=== PATIENT | female | born 1950 | race Caucasian/White ===

== ENCOUNTER 2023-07-19 10:11 | Day surgery (SDC) | payer OTHER ==
[2023-07-15 08:51] LABS: BASOPHILS # (AUTO) 0.1 X10'3 (0-0.2); EOSINOPHILS # (AUTO) 0.4 X10'3 (0-0.9); EOSINOPHILS % (AUTO) 5.9 % (0-6); HEMATOCRIT 41.4 % (35.0-45.0); HEMOGLOBIN 13.6 g/dl (12.0-16.0); LYMPHOCYTES # (AUTO) 1.5 X10'3 (1.1-4.8); LYMPHOCYTES % (AUTO) 24.5 % (21-51); MEAN CORPUSCULAR HEMOGLOBIN 29.1 PG (27.0-31.0); MEAN CORPUSCULAR HGB CONC 32.9 g/dL (33.0-36.5); MEAN CORPUSCULAR VOLUME 88.6 FL (78-98); MEAN PLATELET VOLUME 8.4 FL (7.4-10.4); MONOCYTES # (AUTO) 0.4 X10'3 (0-0.9); NEUTROPHILS # (AUTO) 3.8 X10'3 (1.8-7.7); NEUTROPHILS % (AUTO) 61.6 % (42-75); PLATELET COUNT 243 X10'3 (140-440); RED BLOOD COUNT 4.67 X10'6 (4.20-5.60); RED CELL DISTRIBUTION WIDTH 14.5 % (11.5-14.5); WHITE BLOOD COUNT 6.2 X10'3 (4.5-11.0)
[2023-07-15 09:04] LABS: ALBUMIN 3.1 G/DL (3.4-5.0); ANION GAP 12 (8-16); BLOOD UREA NITROGEN 23 MG/DL (7-18); BUN/CREATININE RATIO 19.7 (10.0-20.0); CALCIUM 9.1 MG/DL (8.5-10.1); CHLORIDE 106 MMOL/L (99-107); CHOL/HDL RATIO 1.6 (0.00-4.99); CHOLESTEROL 120 MG/DL (0-200); CREATININE 1.17 MG/DL (0.40-0.90); HDL CHOLESTEROL 73 MG/DL (35-60); LDL CHOLESTEROL 35 MG/DL (50-100); POTASSIUM 4.3 MMOL/L (3.5-5.1); SODIUM 143 MMOL/L (135-145); TOTAL CARBON DIOXIDE 24.6 MMOL/L (24-32); TRIGLYCERIDES 62 MG/DL (20-135); eGFR 45 ML/MIN
[2023-07-15 09:06] LABS: GLUCOSE 97 MG/DL (70-104)
[2023-07-15 09:28] LABS: APTT 28 SECONDS (22-32); PROTHROMBIN TIME 10.3 SECONDS (9.0-12.0)
[2023-07-19] VITALS (9 sets, daily range): BP systolic 97–144; BP diastolic 50–81; PULSE 60–85; RESP 14–16; TEMP 98; O2SAT 94–97
[~2023-07-19] VITALS: Ht 175.3 cm; Wt 83.7 kg
[2023-07-19] MEDS ORDERED: BUDE10.2 INH (10:39)
[2023-07-19] MEDS ORDERED: NIFE-33 PO (10:39)
[2023-07-19] MEDS ORDERED: ROSU10TA28 PO (10:39)
[2023-07-19] MEDS ORDERED: UBID100C45 PO (10:39)
[2023-07-19] MEDS: diphenhydrAMINE 25mg capsule PO PRN (11:10)
[2023-07-19] MEDS: normal saline 1,000 ML IV SCH (11:10)
[2023-07-19] MEDS: LORazepam 0.5 MG tablet PO PRN (11:10)
[2023-07-19] MEDS ORDERED: midazolam 1 mg/ML 2ml injection ONE (12:07)
[2023-07-19] MEDS ORDERED: LIDOcaine 1% (10mg/ml) 2ml vial ONE (12:07)
[2023-07-19] MEDS ORDERED: verapamil 2.5 mg/ml inj IV ONE (12:07)
[2023-07-19] MEDS ORDERED: fentaNYL/PF 50MCG/1 ML 2ML syringe ONE (12:07)
[2023-07-19] MEDS ORDERED: heparin 1,000unit/ml 10ml vial 10 ML ONE (12:08)
[2023-07-19] MEDS ORDERED: iohexol 350 MG/ML 50ML vial IV ONE (12:08)
[2023-07-19] MEDS ORDERED: iohexol 350MG/ML 100ml bottle IV ONE (12:08)
[2023-07-19] MEDS ORDERED: nitroGLYCERIN 500mcg/5mL D5W 5 ML IV ONE (12:09)
[2023-07-19] MEDS ORDERED: HYDROcodone/acetaminophen 5mg/325mg tablet PO PRN (13:35)
[2023-07-19] MEDS ORDERED: nitroGLYCERIN 0.4mg SUBLingual tab SL PRN (13:35)
[2023-07-19] MEDS ORDERED: proCHLORperazine 10 MG/2 ml inj IV PRN (13:35)
[2023-07-19] MEDS ORDERED: ondansetron/PF 4mg/2ml inj IV PRN (13:35)
[2023-07-19] MEDS ORDERED: HYDROcodone/acetaminophen 10/325mg tab PO PRN (13:35)
[2023-07-19] MEDS ORDERED: OXAZEpam 15mg capsule PO PRN (13:35)
== END 2023-07-19 16:10 | disposition home or self-care (01) ==
LOC: SSTAY O 10:11
PROVIDERS: ATTEND Student in an Organized Health Care Education/Training Program
DX: I71.21 Aneurysm of the ascending aorta, without rupture (principal); I10 Essential (primary) hypertension; E78.00 Pure hypercholesterolemia, unspecified; J45.909 Unspecified asthma, uncomplicated; M19.90 Unspecified osteoarthritis, unspecified site; Z79.899 Other long term (current) drug therapy
CPT/HCPCS: 36415; 80048; 80061; 85025; 85610; 85730; 93005; 93458; 93567; 99152; J1644; J2250; J3010; J3490; J7030; Q0163; Q9967; 99153; A6258; A6402; A6449; C1894

== ENCOUNTER 2023-08-22 05:37 | Inpatient (IN) | payer OTHER ==
[2023-08-18 13:53] LABS: BASOPHILS # (AUTO) 0.1 X10'3 (0-0.2); BASOPHILS % (AUTO) 1.3 % (0-1); BILIRUBIN,URINE NEGATIVE (Neg); CLARITY,URINE SLIGHTLY CLOUDY (Clear); COLOR,URINE YELLOW (Yellow); EOSINOPHILS # (AUTO) 0.4 X10'3 (0-0.9); EOSINOPHILS % (AUTO) 5.6 % (0-6); GLUCOSE, URINE NEGATIVE (Neg); KETONES,URINE NEGATIVE (Neg); LEUKOCYTE ESTERASE ,URINE TRACE (Neg); LYMPHOCYTES # (AUTO) 1.9 X10'3 (1.1-4.8); LYMPHOCYTES % (AUTO) 25.3 % (21-51); MEAN CORPUSCULAR HEMOGLOBIN 29.1 PG (27.0-31.0); MEAN CORPUSCULAR HGB CONC 33.4 g/dL (33.0-36.5); MEAN CORPUSCULAR VOLUME 87.1 FL (78-98); MEAN PLATELET VOLUME 8.8 FL (7.4-10.4); MONOCYTES # (AUTO) 0.5 X10'3 (0-0.9); MONOCYTES % (AUTO) 6.1 % (2-12); NEUTROPHILS # (AUTO) 4.7 X10'3 (1.8-7.7); NEUTROPHILS % (AUTO) 61.7 % (42-75); NITRITES, URINE NEGATIVE (Neg); OCCULT BLOOD,URINE NEGATIVE (Neg); PH,URINE 5.5 (4.8-8.0); PRE OP HEMATOCRIT 43.9 % (35.0-45.0); PRE OP HEMOGLOBIN 14.7 g/dL (12.0-16.0); PRE OP PLATELET COUNT 276 X10'3 (140-440); PRE OP WHITE BLOOD COUNT 7.6 10'3 (4.8-10.8); PROTEIN,URINE NEGATIVE (Neg); RED BLOOD COUNT 5.03 X10'6 (4.20-5.60); RED CELL DISTRIBUTION WIDTH 14.3 % (11.5-14.5)
[2023-08-18 13:55] LABS: UA COLLECTION TYPE CLN CATCH MIDSTREAM
[2023-08-18 13:59] LABS: SQUAMOUS EPITHELIAL CELL,UR MODERATE /LPF (FEW)
[2023-08-18 14:00] LABS: BACTERIA,URINE FEW /HPF (Neg); RBC,URINE NONE SEEN /HPF (0-2)
[2023-08-18 14:08] LABS: PRE OP PROTIME 10.8 SECONDS (9.0-12.0)
[2023-08-18 14:09] LABS: ALBUMIN 3.4 G/DL (3.4-5.0); ALBUMIN/GLOBULIN RATIO 0.8 (1.1-1.5); ALKALINE PHOSPHATASE 108 IU/L (46-116); BLOOD UREA NITROGEN 9 MG/DL (7-18); BUN/CREATININE RATIO 6.5 (10.0-20.0); CALCIUM 9.4 MG/DL (8.5-10.1); CHLORIDE 105 MMOL/L (99-107); CREATININE 1.39 MG/DL (0.40-0.90); PRE OP ALT 15 U/L (30-65); PRE OP ANION GAP 11 (8-16); PRE OP AST 19 U/L (10-37); PRE OP BILIRUB, TOTAL 0.6 MG/DL (0.0-1.0); PRE OP GLUCOSE 107 MG/DL (70-104); PRE OP POTASSIUM 4.1 MMOL/L (3.4-5.1); PRE OP SODIUM 140 MMOL/L (135-145); TOTAL CARBON DIOXIDE 24.4 MMOL/L (24-32); TOTAL PROTEIN 7.9 G/DL (6.4-8.2); eGFR 37 ML/MIN
[2023-08-18 14:17] LABS: HEMOGLOBIN A1C 5.2 % (4.5-6.2)
[2023-08-22] VITALS (25 sets, daily range): BP systolic 13–147; BP diastolic 44–85; PULSE 53–81; RESP 12–16; TEMP 97–97.4; O2SAT 97–99
[~2023-08-22] VITALS: Ht 152.4 cm; Wt 84.6 kg
[~2023-08-22 05:37] MED LIST: FLUT1BLS4 INH; Insulin Reg/NS 100units/100mL 100 ML IV SCH; NIFE-33 PO; ROSU10TA28 PO; dextrose 50%-water 50ml dispensing syringe IV PRN
[2023-08-22] MEDS: cefazolin 2gm/D5W 100mL 100 ML IV ONE (05:54)
[2023-08-22] MEDS: mupirocin 2% nasal ointment 1gm UD NS ONE (06:10)
[2023-08-22] MEDS: famotidine 20mg tablet PO ONE (06:10)
[2023-08-22] MEDS: vancomycin 1,500 MG in NS 300ml IV soln IV ONE (06:11)
[2023-08-22] MEDS: ringers solution, lacted 1,000 ML IV SCH (06:11)
[2023-08-22] MEDS ORDERED: ceFAZolin 1000mg inj ONE (06:27)
[2023-08-22] MEDS ORDERED: LIDOcaine 1% (10mg/ml) 2ml vial ONE (06:27)
[2023-08-22] MEDS ORDERED: heparin 10,000 units/1 ML INJ ONE (06:27)
[2023-08-22] MEDS ORDERED: epiNEPHrine 1 mg/ml inj ONE (06:27)
[2023-08-22] MEDS: metoprolol tartrate 12.5mg (1/2 tablet) PO ONE (06:28)
[2023-08-22] MEDS ORDERED: vancomycin 1,000mg inj ONE (06:28)
[2023-08-22 06:48] LABS: ABG BASE EXCESS -1.4 mmol/L (-2.0-2.0); ABG OXYGEN SATURATION 96.3 % (94-97); ABG PCO2 (T) 33.9 mmHg (32.0-45.0); ABG PH (T) 7.431 (7.350-7.450); ABG PO2 (T) 80.1 mmHg (75.0-100.0); ALLEN'S TEST POSITIVE; FCOHb 0.1 % (0.0-3.9); FHHb 3.7 % (0.0-5.0); FMetHb 0.3 % (0.0-1.5); FO2Hb 95.9 % (94-97); MODE ROOM AIR; TOTAL HEMOGLOBIN 15.7 G/dl (12.0-16.0)
[2023-08-22] MEDS: LORazepam 2 mg/ml vial IV PRN (07:37)
[2023-08-22] MEDS ORDERED: propofol inj 20 ML IV ONE (07:48)
[2023-08-22] MEDS ORDERED: MIDAZolam 1 MG/ML 5ML VIAL ONE (07:48)
[2023-08-22] MEDS ORDERED: SUfentanil 50mcg/ml 1ml amp IV ONE (07:48)
[2023-08-22] MEDS ORDERED: rocuronium 10mg/ml inj IV ONE ×2 (07:49)
[2023-08-22] MEDS ORDERED: albumin (human) 25% 100 ML IV solution IV ONE (08:00)
[2023-08-22] MEDS ORDERED: sevoflurane 250ml liquid IH ONE (08:02)
[2023-08-22] MEDS: ceFAZolin 1000mg inj IR ONE (08:30)
[2023-08-22 09:03] LABS: ABG BASE EXCESS -1.4 mmol/L (-2.0-2.0); ABG PCO2 (T) 37.4 mmHg (32.0-45.0); ABG PH (T) 7.406 (7.350-7.450); ABG PO2 (T) 210.6 mmHg (75.0-100.0); FCOHb 0.3 % (0.0-3.9); FMetHb 0.3 % (0.0-1.5); FO2Hb 98.4 % (94-97); TOTAL HEMOGLOBIN 12.2 G/dl (12.0-16.0)
[2023-08-22 09:38] LABS: ACT @ 1.70 U 259 SEC (193-297); ACT @ 2.84 U 336 SEC (260-420); BASELINE ACT 124 SEC (101-148); PATIENT WEIGHT 78.0k KG
[2023-08-22 09:52] LABS: ABG BASE EXCESS 1.6 mmol/L (-2.0-2.0); ABG OXYGEN SATURATION 99.3 % (94-97); ABG PCO2 (T) 34.6 mmHg (32.0-45.0); ABG PH (T) 7.477 (7.350-7.450); ABG PO2 (T) 503.7 mmHg (75.0-100.0); FCOHb 0.3 % (0.0-3.9); FHHb 0.7 % (0.0-5.0); FMetHb 0.3 % (0.0-1.5); FO2Hb 98.7 % (94-97); TOTAL HEMOGLOBIN 9.6 G/dl (12.0-16.0)
[2023-08-22 10:19] LABS: ABG BASE EXCESS 6.8 mmol/L (-2.0-2.0); ABG PCO2 (T) 37.1 mmHg (32.0-45.0); ABG PH (T) 7.526 (7.350-7.450); ABG PO2 (T) 295.4 mmHg (75.0-100.0); FCOHb 0.3 % (0.0-3.9); FMetHb 0.3 % (0.0-1.5); FO2Hb 98.4 % (94-97); TOTAL HEMOGLOBIN 8.7 G/dl (12.0-16.0)
[2023-08-22 10:53] LABS: ACTIVATED CLOTTING TIME 118 SEC (101-148)
[2023-08-22] MEDS ORDERED: dextrose 50%-water 50ml dispensing syringe IV PRN (11:15)
[2023-08-22] MEDS ORDERED: sodium phosphate inj. 30 MMOL in dextrose 5%-water 250 ML IV PRN (11:15)
[2023-08-22] MEDS ORDERED: nitroGLYCERIN-Tridil 50MG/D5W 250 ML IV PRN (11:15)
[2023-08-22] MEDS: Insulin Reg/NS 100units/100mL 100 ML IV SCH (11:15)
[2023-08-22] MEDS ORDERED: potassium Cl 20 mEq SR tablet PO PRN (11:15)
[2023-08-22] MEDS ORDERED: insulin glargine (Lantus) pen - multi-dose SQ PRN (11:15)
[2023-08-22] MEDS ORDERED: Neutra Phos packet PO PRN (11:15)
[2023-08-22] MEDS ORDERED: metoclopramide 5 mg/ml inj IV PRN (11:15)
[2023-08-22] MEDS ORDERED: mineral oil 133ml enema RC PRN (11:15)
[2023-08-22] MEDS ORDERED: niCARDipine-NS 40mg/200ml IVPB 200 ML IV PRN (11:15)
[2023-08-22] MEDS ORDERED: potassium Cl 40MEQ/1/2NS 520ml 520 ML IV PRN (11:15)
[2023-08-22] MEDS ORDERED: magnesium 4gm in 100ml NS 100 ML IV PRN (11:15)
[2023-08-22] MEDS ORDERED: ondansetron/PF 4mg/2ml inj IV PRN (11:15)
[2023-08-22] MEDS: sodium chloride 0.45% 1,000 ML IV SCH (11:15)
[2023-08-22] MEDS ORDERED: potassium CL 10mEq/100ml bag 100 ML IV PRN (11:15)
[2023-08-22] MEDS ORDERED: potassium Cl 40MEQ/270ML bag 250 ML IV PRN (11:15)
[2023-08-22 11:47] LABS: BASOPHILS % (AUTO) 0.3 % (0-1); EOSINOPHILS # (AUTO) 0.2 X10'3 (0-0.9); EOSINOPHILS % (AUTO) 2.9 % (0-6); HEMATOCRIT 32.7 % (35.0-45.0); LYMPHOCYTES # (AUTO) 0.9 X10'3 (1.1-4.8); LYMPHOCYTES % (AUTO) 10.4 % (21-51); MEAN CORPUSCULAR HEMOGLOBIN 29.3 PG (27.0-31.0); MEAN CORPUSCULAR HGB CONC 33.5 g/dL (33.0-36.5); MEAN CORPUSCULAR VOLUME 87.6 FL (78-98); MONOCYTES # (AUTO) 0.2 X10'3 (0-0.9); MONOCYTES % (AUTO) 2.6 % (2-12); NEUTROPHILS # (AUTO) 6.9 X10'3 (1.8-7.7); NEUTROPHILS % (AUTO) 83.8 % (42-75); PLATELET COUNT 119 X10'3 (140-440); RED BLOOD COUNT 3.74 X10'6 (4.20-5.60); RED CELL DISTRIBUTION WIDTH 14.2 % (11.5-14.5); WHITE BLOOD COUNT 8.2 X10'3 (4.5-11.0)
[2023-08-22 11:52] LABS: ABG BASE EXCESS -0.3 mmol/L (-2.0-2.0); ABG HCO3 23.9 mmol/L (22.0-26.0); ABG OXYGEN SATURATION 99.5 % (94-97); ABG PCO2 (T) 36.9 mmHg (32.0-45.0); ABG PH (T) 7.427 (7.350-7.450); ABG PO2 (T) 258.5 mmHg (75.0-100.0); FCOHb 0.1 % (0.0-3.9); FHHb 0.5 % (0.0-5.0); FMetHb 0.3 % (0.0-1.5); FO2Hb 99.1 % (94-97); MODE VENT - SIMV/VC; PATIENT TEMPERATURE 36.9; PEEP 5 cm H2O; RESPIRATORY RATE 12 b/min; TIDAL VOLUME 500 mL; TOTAL HEMOGLOBIN 11.8 G/dl (12.0-16.0)
[2023-08-22] MEDS: albumin (Human) 5% 250ml 250 ML IV PRN (11:52)
[2023-08-22 11:59] LABS: APTT 27 SECONDS (22-32); INR 1.2 INR; PROTHROMBIN TIME 12.8 SECONDS (9.0-12.0)
[2023-08-22 12:03] LABS: ALANINE AMINOTRANSFERASE 8 U/L (12-78); ALBUMIN 2.7 G/DL (3.4-5.0); ALBUMIN/GLOBULIN RATIO 1.2 (1.1-1.5); ALKALINE PHOSPHATASE 53 IU/L (46-116); ANION GAP 12 (8-16); ASPARTATE AMINO TRANSFERASE 20 U/L (10-37); BILIRUBIN,TOTAL 0.4 MG/DL (0.1-1.0); BLOOD UREA NITROGEN 12 MG/DL (7-18); BUN/CREATININE RATIO 11.4 (10.0-20.0); CHLORIDE 110 MMOL/L (99-107); CREATININE 1.05 MG/DL (0.40-0.90); GLUCOSE 124 MG/DL (70-104); MAGNESIUM 2.7 MG/DL (1.5-2.4); PHOSPHORUS 1.8 MG/DL (2.3-4.5); SODIUM 145 MMOL/L (135-145); TOTAL CARBON DIOXIDE 23.4 MMOL/L (24-32); eCRCL 47 ML/MIN; eGFR 52 ML/MIN
[2023-08-22 12:08] LABS: POTASSIUM 3.8 MMOL/L (3.5-5.1)
[2023-08-22] MEDS: potassium Cl 20mEq/100mL bag 100 ML IV PRN (13:04)
[2023-08-22] MEDS: sodium phosphate inj. 15 MMOL in dextrose 5%-water 250 ML IV PRN (13:25)
[2023-08-22] MEDS: MIDAZolam 5mg/ml 2ml vial IV PRN (14:35)
[2023-08-22] MEDS: levetiracetam inj 1,000 MG in normal saline 100ml IV soln 100 ML IV SCH (14:51)
[2023-08-22] MEDS: ceFAZolin/D5W- 1GM premix 50 ML IV SCH (15:56)
[2023-08-22] MEDS: morphine 2 MG/ML inj. syringe IV PRN (16:22)
[2023-08-22] MEDS ORDERED: levetiracetam inj 1,000 MG in normal saline 100ml IV soln 100 ML IV SCH (17:15)
[2023-08-22 17:33] LABS: BASOPHILS % (AUTO) 0.1 % (0-1); EOSINOPHILS % (AUTO) 0.1 % (0-6); HEMATOCRIT 32.3 % (35.0-45.0); HEMOGLOBIN 10.5 g/dl (12.0-16.0); LYMPHOCYTES # (AUTO) 0.4 X10'3 (1.1-4.8); LYMPHOCYTES % (AUTO) 3.6 % (21-51); MEAN CORPUSCULAR HEMOGLOBIN 28.9 PG (27.0-31.0); MEAN CORPUSCULAR HGB CONC 32.7 g/dL (33.0-36.5); MEAN CORPUSCULAR VOLUME 88.4 FL (78-98); MEAN PLATELET VOLUME 9.1 FL (7.4-10.4); MONOCYTES # (AUTO) 0.2 X10'3 (0-0.9); MONOCYTES % (AUTO) 1.8 % (2-12); NEUTROPHILS # (AUTO) 11.6 X10'3 (1.8-7.7); NEUTROPHILS % (AUTO) 94.4 % (42-75); PLATELET COUNT 123 X10'3 (140-440); RED BLOOD COUNT 3.65 X10'6 (4.20-5.60); RED CELL DISTRIBUTION WIDTH 14.2 % (11.5-14.5); WHITE BLOOD COUNT 12.3 X10'3 (4.5-11.0)
[2023-08-22] MEDS: levetiracetam inj 1,000 MG in normal saline 100ml IV soln 100 ML IV ONE (17:36)
[2023-08-22 17:47] LABS: ALBUMIN 3.4 G/DL (3.4-5.0); ANION GAP 13 (8-16); BLOOD UREA NITROGEN 12 MG/DL (7-18); BUN/CREATININE RATIO 8.9 (10.0-20.0); CALCIUM 8.6 MG/DL (8.5-10.1); CHLORIDE 110 MMOL/L (99-107); CREATININE 1.35 MG/DL (0.40-0.90); GLUCOSE 206 MG/DL (70-104); MAGNESIUM 2.2 MG/DL (1.5-2.4); PHOSPHORUS 3.4 MG/DL (2.3-4.5); POTASSIUM 3.9 MMOL/L (3.5-5.1); SODIUM 145 MMOL/L (135-145); TOTAL CARBON DIOXIDE 21.7 MMOL/L (24-32); eCRCL 27 ML/MIN; eGFR 39 ML/MIN
[2023-08-22] MEDS: magnesium 2GM in 50ml NS 50 ML IV PRN (18:09)
[2023-08-22] MEDS: NORepinephrine 8mg/ 250ml NS 250 ML IV SCH (18:30)
[2023-08-22] MEDS: morphine 4 MG/ML inj SYRINge IV PRN (18:46)
[2023-08-22] MEDS: propofol 1000mg/100ml bottle 100 ML IV SCH (19:42)
[2023-08-22] MEDS ORDERED: mupirocin 2% ointment 22GM NS SCH (20:00)
[2023-08-22] MEDS: sennosides/docusate sodium tablet PO SCH (20:09)
[2023-08-22] MEDS: vancomycin/NS 1 GM ADD-VANTAGE 250 ML IV SCH (20:09)
[2023-08-22] MEDS: atorvastatin 10mg tablet PO SCH (20:09)
[2023-08-22] MEDS: mupirocin 2% nasal ointment 1gm UD NS SCH (20:18)
[2023-08-22] MEDS: niCARDipine-NS 40mg/200ml IVPB 200 ML IV PRN (23:29)
[2023-08-23] VITALS (31 sets, daily range): BP systolic 116–146; BP diastolic 50–71; PULSE 59–85; RESP 7–20; O2SAT 96–99
[2023-08-23] MEDS: acetaminophen 325mg tablet PO PRN (00:02)
[2023-08-23 01:53] LABS: ABG BASE EXCESS -4.8 mmol/L (-2.0-2.0); ABG HCO3 19.7 mmol/L (22.0-26.0); ABG OXYGEN SATURATION 96.4 % (94-97); ABG PCO2 (T) 34.4 mmHg (32.0-45.0); ABG PH (T) 7.374 (7.350-7.450); ABG PO2 (T) 79.7 mmHg (75.0-100.0); FHHb 3.6 % (0.0-5.0); FMetHb 0.3 % (0.0-1.5); FO2Hb 96.1 % (94-97); MODE SIMV; PATIENT TEMPERATURE 36.9; PEEP 5 cm H2O; RESPIRATORY RATE 12 b/min; TIDAL VOLUME 500 mL; TOTAL HEMOGLOBIN 11.4 G/dl (12.0-16.0)
[2023-08-23 02:16] LABS: BASOPHILS % (AUTO) 0.2 % (0-1); EOSINOPHILS % (AUTO) 0 % (0-6); HEMATOCRIT 33.1 % (35.0-45.0); HEMOGLOBIN 10.9 g/dl (12.0-16.0); LYMPHOCYTES # (AUTO) 0.6 X10'3 (1.1-4.8); LYMPHOCYTES % (AUTO) 5.8 % (21-51); MEAN CORPUSCULAR HEMOGLOBIN 29.2 PG (27.0-31.0); MEAN CORPUSCULAR HGB CONC 32.9 g/dL (33.0-36.5); MEAN CORPUSCULAR VOLUME 88.7 FL (78-98); MEAN PLATELET VOLUME 9.4 FL (7.4-10.4); MONOCYTES # (AUTO) 0.3 X10'3 (0-0.9); MONOCYTES % (AUTO) 2.8 % (2-12); NEUTROPHILS # (AUTO) 8.7 X10'3 (1.8-7.7); NEUTROPHILS % (AUTO) 91.2 % (42-75); PLATELET COUNT 111 X10'3 (140-440); RED BLOOD COUNT 3.73 X10'6 (4.20-5.60); RED CELL DISTRIBUTION WIDTH 14.3 % (11.5-14.5); WHITE BLOOD COUNT 9.5 X10'3 (4.5-11.0)
[2023-08-23 02:37] LABS: ALANINE AMINOTRANSFERASE 13 U/L (12-78); ALBUMIN 3.6 G/DL (3.4-5.0); ALBUMIN/GLOBULIN RATIO 1.4 (1.1-1.5); ALKALINE PHOSPHATASE 48 IU/L (46-116); ANION GAP 14 (8-16); ASPARTATE AMINO TRANSFERASE 27 U/L (10-37); BILIRUBIN,TOTAL 0.3 MG/DL (0.1-1.0); BLOOD UREA NITROGEN 10 MG/DL (7-18); BUN/CREATININE RATIO 9.3 (10.0-20.0); CALCIUM 8.7 MG/DL (8.5-10.1); CHLORIDE 110 MMOL/L (99-107); CREATININE 1.07 MG/DL (0.40-0.90); GLUCOSE 136 MG/DL (70-104); MAGNESIUM 2.5 MG/DL (1.5-2.4); PHOSPHORUS 3.4 MG/DL (2.3-4.5); POTASSIUM 3.8 MMOL/L (3.5-5.1); SODIUM 145 MMOL/L (135-145); TOTAL CARBON DIOXIDE 21.4 MMOL/L (24-32); TOTAL PROTEIN 6.1 G/DL (6.4-8.2); eCRCL 34 ML/MIN; eGFR 50 ML/MIN
[2023-08-23] MEDS: metoprolol tartrate 12.5mg (1/2 tablet) PO SCH (06:46)
[2023-08-23] MEDS: aspirin 81mg tab.chew PO SCH (06:46)
[2023-08-23] MEDS: non-formulary drug (Fluticasone/Umeclidin/Vilanter (Trelegy Ellipta 100-62.5-25) 1 PUFFS) PO SCH (08:00)
[2023-08-24] VITALS (18 sets, daily range): BP systolic 108–146; BP diastolic 45–73; PULSE 60–76; RESP 12–22; O2SAT 91–99
[2023-08-24 03:15] LABS: BASOPHILS # (AUTO) 0.1 X10'3 (0-0.2); BASOPHILS % (AUTO) 0.5 % (0-1); EOSINOPHILS % (AUTO) 0 % (0-6); HEMATOCRIT 34.1 % (35.0-45.0); HEMOGLOBIN 11.2 g/dl (12.0-16.0); LYMPHOCYTES # (AUTO) 1.2 X10'3 (1.1-4.8); LYMPHOCYTES % (AUTO) 8.7 % (21-51); MEAN CORPUSCULAR HEMOGLOBIN 28.9 PG (27.0-31.0); MEAN CORPUSCULAR HGB CONC 32.8 g/dL (33.0-36.5); MEAN PLATELET VOLUME 9.5 FL (7.4-10.4); MONOCYTES # (AUTO) 0.8 X10'3 (0-0.9); MONOCYTES % (AUTO) 6.1 % (2-12); NEUTROPHILS # (AUTO) 11.5 X10'3 (1.8-7.7); NEUTROPHILS % (AUTO) 84.7 % (42-75); PLATELET COUNT 131 X10'3 (140-440); RED BLOOD COUNT 3.87 X10'6 (4.20-5.60); RED CELL DISTRIBUTION WIDTH 14.3 % (11.5-14.5); WHITE BLOOD COUNT 13.7 X10'3 (4.5-11.0)
[2023-08-24 03:24] LABS: ALBUMIN 3.4 G/DL (3.4-5.0); ANION GAP 2 (8-16); BLOOD UREA NITROGEN 14 MG/DL (7-18); BUN/CREATININE RATIO 14.3 (10.0-20.0); CHLORIDE 106 MMOL/L (99-107); CREATININE 0.98 MG/DL (0.40-0.90); GLUCOSE 125 MG/DL (70-104); MAGNESIUM 2.1 MG/DL (1.5-2.4); PHOSPHORUS 3.7 MG/DL (2.3-4.5); POTASSIUM 4.3 MMOL/L (3.5-5.1); SODIUM 138 MMOL/L (135-145); TOTAL CARBON DIOXIDE 29.7 MMOL/L (24-32); eCRCL 37 ML/MIN; eGFR 56 ML/MIN
[2023-08-24] MEDS ORDERED: potassium Cl 40MEQ/1/2NS 520ml 520 ML IV PRN (08:30)
[2023-08-24] MEDS ORDERED: potassium CL 10mEq/100ml bag 100 ML IV PRN (08:30)
[2023-08-24] MEDS ORDERED: potassium Cl 40MEQ/270ML bag 250 ML IV PRN (08:30)
[2023-08-24] MEDS ORDERED: potassium Cl 20mEq/100mL bag 100 ML IV PRN (08:30)
[2023-08-24] MEDS ORDERED: magnesium 4gm in 100ml NS 100 ML IV PRN (08:30)
[2023-08-24] MEDS ORDERED: potassium Cl 20 mEq SR tablet PO PRN ×2 (08:30)
[2023-08-24] MEDS: magnesium 2GM in 50ml NS 50 ML IV PRN (08:44)
[2023-08-24] MEDS: pantoprazole 40mg Tablet.DR PO SCH (08:45)
[2023-08-24] MEDS: ipratropium/albuterol 3ml nebule NEB SCH (09:20)
[2023-08-24] MEDS: budesonide 0.5mg/2ml UD nebule IH SCH (09:20)
[2023-08-24] MEDS: TRELEGY PO SCH (10:17)
[2023-08-24] MEDS: lactose-reduced food (Ensure Enlive) - 237ml bottle PO SCH (13:00)
[2023-08-24] MEDS ORDERED: ipratropium/albuterol 3ml nebule NEB SCH (14:00)
[2023-08-24] MEDS: HYDROcodone/acetaminophen 10/325mg tab PO PRN (17:37)
[2023-08-24] MEDS: JUVEN Shake w/Arg/Glut/Ca2+Bmb (Juven 19.3gm) pkt 240ml PO SCH (17:56)
[2023-08-24] MEDS: magnesium Cl slow-release 64mg tablet PO SCH (20:00)
[2023-08-24] MEDS ORDERED: budesonide 0.5mg/2ml UD nebule IH SCH (20:00)
[2023-08-25] VITALS (9 sets, daily range): BP systolic 89–123; BP diastolic 44–59; PULSE 65–91; RESP 11–22; O2SAT 90–97
[2023-08-25 02:43] LABS: BASOPHILS % (AUTO) 0.4 % (0-1); EOSINOPHILS % (AUTO) 0.1 % (0-6); HEMATOCRIT 32.9 % (35.0-45.0); HEMOGLOBIN 10.8 g/dl (12.0-16.0); LYMPHOCYTES # (AUTO) 1.6 X10'3 (1.1-4.8); LYMPHOCYTES % (AUTO) 17.8 % (21-51); MEAN CORPUSCULAR HGB CONC 32.7 g/dL (33.0-36.5); MEAN CORPUSCULAR VOLUME 88.7 FL (78-98); MEAN PLATELET VOLUME 9.2 FL (7.4-10.4); MONOCYTES # (AUTO) 0.8 X10'3 (0-0.9); MONOCYTES % (AUTO) 9.1 % (2-12); NEUTROPHILS # (AUTO) 6.7 X10'3 (1.8-7.7); NEUTROPHILS % (AUTO) 72.6 % (42-75); PLATELET COUNT 120 X10'3 (140-440); RED BLOOD COUNT 3.71 X10'6 (4.20-5.60); RED CELL DISTRIBUTION WIDTH 14.7 % (11.5-14.5); WHITE BLOOD COUNT 9.2 X10'3 (4.5-11.0)
[2023-08-25 02:48] LABS: ALBUMIN 2.9 G/DL (3.4-5.0); ANION GAP 7 (8-16); BLOOD UREA NITROGEN 24 MG/DL (7-18); BUN/CREATININE RATIO 22.2 (10.0-20.0); CALCIUM 8.5 MG/DL (8.5-10.1); CHLORIDE 107 MMOL/L (99-107); CREATININE 1.08 MG/DL (0.40-0.90); GLUCOSE 111 MG/DL (70-104); MAGNESIUM 2.4 MG/DL (1.5-2.4); POTASSIUM 4.4 MMOL/L (3.5-5.1); SODIUM 141 MMOL/L (135-145); TOTAL CARBON DIOXIDE 27.4 MMOL/L (24-32); eCRCL 34 ML/MIN; eGFR 50 ML/MIN
[2023-08-25] MEDS: acetaminophen 325mg tablet PO PRN (07:17)
[2023-08-25] MEDS ORDERED: LOP12.5T PO (08:20)
[2023-08-25] MEDS ORDERED: ASPI81TA53 PO (08:20)
[2023-08-25] MEDS ORDERED: HYDR-3972 PO (08:20)
[2023-08-25] MEDS ORDERED: ipratropium/albuterol 3ml nebule NEB PRN (11:00)
[2023-08-25] MEDS: magnesium hydroxide 30ml (MOM) UD suspension PO PRN (15:04)
[2023-08-25] MEDS: HYDROcodone/acetaminophen 10/325mg tab PO PRN (20:29)
[2023-08-26] VITALS: BP 96/45; PULSE 67; RESP 15; O2SAT 91
[2023-08-26 04:00] VITALS: BP 112/51; PULSE 72; RESP 12; O2SAT 93
[2023-08-26] MEDS: bisacodyl 10mg suppository rectal RC PRN (04:51)
[2023-08-26 07:23] VITALS: PULSE 66; RESP 16; O2SAT 93
[2023-08-26 07:27] VITALS: PULSE 74; RESP 16
[2023-08-26 08:00] VITALS: BP 117/59; PULSE 81; RESP 20; RESP 22; O2SAT 91; O2SAT 92
[2023-08-26 08:29] LABS: BASOPHILS # (AUTO) 0.1 X10'3 (0-0.2); BASOPHILS % (AUTO) 0.7 % (0-1); EOSINOPHILS # (AUTO) 0.2 X10'3 (0-0.9); EOSINOPHILS % (AUTO) 2.2 % (0-6); HEMATOCRIT 34.3 % (35.0-45.0); HEMOGLOBIN 11.3 g/dl (12.0-16.0); LYMPHOCYTES # (AUTO) 1.9 X10'3 (1.1-4.8); MEAN CORPUSCULAR HEMOGLOBIN 29.4 PG (27.0-31.0); MEAN CORPUSCULAR HGB CONC 32.9 g/dL (33.0-36.5); MEAN CORPUSCULAR VOLUME 89.3 FL (78-98); MEAN PLATELET VOLUME 9.5 FL (7.4-10.4); MONOCYTES # (AUTO) 0.8 X10'3 (0-0.9); MONOCYTES % (AUTO) 9.2 % (2-12); NEUTROPHILS # (AUTO) 5.5 X10'3 (1.8-7.7); NEUTROPHILS % (AUTO) 64.9 % (42-75); PLATELET COUNT 145 X10'3 (140-440); RED BLOOD COUNT 3.84 X10'6 (4.20-5.60); RED CELL DISTRIBUTION WIDTH 14.2 % (11.5-14.5); WHITE BLOOD COUNT 8.4 X10'3 (4.5-11.0)
[2023-08-26 08:38] LABS: ALBUMIN 3.1 G/DL (3.4-5.0); ANION GAP 5 (8-16); BLOOD UREA NITROGEN 28 MG/DL (7-18); BUN/CREATININE RATIO 23.5 (10.0-20.0); CALCIUM 8.6 MG/DL (8.5-10.1); CHLORIDE 107 MMOL/L (99-107); CREATININE 1.19 MG/DL (0.40-0.90); GLUCOSE 107 MG/DL (70-104); MAGNESIUM 2.3 MG/DL (1.5-2.4); POTASSIUM 4.3 MMOL/L (3.5-5.1); SODIUM 142 MMOL/L (135-145); TOTAL CARBON DIOXIDE 30.2 MMOL/L (24-32); eCRCL 31 ML/MIN; eGFR 45 ML/MIN
== END 2023-08-26 09:00 | disposition home or self-care (01) | DRG 219 ==
LOC: PAS IN 05:37 → CICU 2S 11:26
PROVIDERS: ADMIT Thoracic Surgery (Cardiothoracic Vascular Surgery); ATTEND Thoracic Surgery (Cardiothoracic Vascular Surgery)
PROC: B24BZZ4 Ultrasonography of Heart with Aorta, Transesophageal (ICD-10-PCS; 2023-08-22)
PROC: 04QK0ZZ Repair Right Femoral Artery, Open Approach (ICD-10-PCS; 2023-08-22)
PROC: 5A1221Z Performance of Cardiac Output, Continuous (ICD-10-PCS; 2023-08-22)
PROC: 4A00X4Z Measurement of Central Nervous Electrical Activity, External Approach (ICD-10-PCS; 2023-08-22)
PROC: 02RX0JZ Replacement of Thoracic Aorta, Ascending/Arch with Synthetic Substitute, Open Approach (ICD-10-PCS; principal; 2023-08-22 08:02)
DX: I71.21 Aneurysm of the ascending aorta, without rupture (principal); J96.00 Acute respiratory failure, unspecified whether with hypoxia or hypercapnia; R56.9 Unspecified convulsions; I95.9 Hypotension, unspecified; T41.45XA Adverse effect of unspecified anesthetic, initial encounter; E11.9 Type 2 diabetes mellitus without complications; Z79.899 Other long term (current) drug therapy; Y92.89 Other specified places as the place of occurrence of the external cause
CPT/HCPCS: 36415; 36600; 71045; 71046; 80048; 80053; 81001; 82800; 82803; 82948; 83036; 83735; 84100; 84132; 85018; 85025; 85347; 85610; 85730; 86885; 86900; 86901; 86920; 87070; 87081; 87088; 88304; 93005; 93312; 93325; 93970; 94002; 94010; 94640; 94668; 94760; 95813; 97161; 97530; A4615; A4618; A6213; A6258; A6449; A7048; C1751; C1768; G0378; J0171; J0690; J1644; J1815; J1953; J2060; J2150; J2250; J2270; J2704; J2720; J2930; J3370; J3475; J3480; J3490; J7030; J7040; J7050; J7060; J7120; P9045; P9047